=== PATIENT | female | born 1975 | race Caucasian/White ===

== ENCOUNTER 2016-05-05 13:46 | Emergency (ER) | payer SELFPAY ==
--- NOTE | 2016-05-05 14:06 | ER Document Report ---
ED Medical Screen (RME) - General Stated Complaint: SHORTNESS OF BREATH,BODY ACHES,FEVER Mode of Arrival: Ambulatory Information source: Patient Notes: She presents to the emergency department with shortness of breath. Patient describes symptoms for over a month. She reports last night she had a fever of 103. She reports she had chills. Denies cardiac history. Denies chest pain. I have greeted and performed a rapid initial assessment of this patient. A comprehensive ED assessment and evaluation of the patient, analysis of test results and completion of the medical decision making process will be conducted by additional ED providers. TRAVEL OUTSIDE OF THE [place] IN LAST 30 DAYS: No - Related Data Allergies/Adverse Reactions: morphine [Morphine] Adverse Reaction (Severe, Verified 05/02/15 09:12) VOMITING Past Medical History - Past Medical History Cardiac Medical History: Denies: Hx Coronary Artery Disease, Hx Heart Attack, Hx Hypertension Pulmonary Medical History: Denies: Hx Asthma, Hx Bronchitis, Hx COPD, Hx Pneumonia Neurological Medical History: Denies: Hx Cerebrovascular Accident, Hx Seizures Endocrine Medical History: Denies: Hx Diabetes Mellitus Type 1, Hx Diabetes Mellitus Type 2 Musculoskeltal Medical History: Denies Hx Arthritis Skin Medical History: Reports Hx MRSA Past Surgical History: Reports: Hx Cardiac Catheterization, Hx Orthopedic Surgery - Left Knee x 4, Hx Tubal Ligation - Immunizations Immunizations up to date: Yes Hx Diphtheria, Pertussis, Tetanus Vaccination: Yes - 2006 Physical Exam - Vital signs Vitals: Temp Pulse Resp BP Pulse Ox 97.6 F 87 20 129/86 H 100 05/05/16 13:56 05/05/16 13:56 05/05/16 13:56 05/05/16 13:56 05/05/16 13:56 Course - Vital Signs Vital signs: Temp Pulse Resp BP Pulse Ox 97.6 F 87 20 129/86 H 100 05/05/16 13:56 05/05/16 13:56 05/05/16 13:56 05/05/16 13:56 05/05/16 13:56
[2016-05-05 14:48] LABS: ABSOLUTE BASOPHILS # (AUTO) 0.1 10^3/uL (0.0-0.2); ABSOLUTE EOSINOPHILS # (AUTO) 0.3 10^3/uL (0.0-0.6); ABSOLUTE LYMPHOCYTES (AUTO) 1.6 10^3/uL (0.5-4.7); ABSOLUTE MONOCYTES (AUTO) 0.5 10^3/uL (0.1-1.4); ABSOLUTE NEUT (AUTO) 5.1 10^3/uL (1.7-8.2); EOSINOPHILS % (AUTO) 3.9 % (0-6); HEMATOCRIT 43.8 % (36.0-47.0); HEMOGLOBIN 14.2 g/dL (12.0-15.5); HGB HCT DIFFERENCE -1.2; LYMPHOCYTES % (AUTO) 21.2 % (13-45); MEAN CORPUSCULAR HEMOGLOBIN 30.7 pg (27.0-33.4); MEAN CORPUSCULAR HGB CONC 32.5 g/dL (32.0-36.0); MEAN CORPUSCULAR VOLUME 95 fl (80-97); MONOCYTES % (AUTO) 6.3 % (3-13); RED BLOOD COUNT 4.63 10^6/uL (3.72-5.28); SEGMENTED NEUTROPHILS % (AUTO) 67.6 % (42-78); WHITE BLOOD COUNT 7.5 10^3/uL (4.0-10.5)
[2016-05-05] MEDS ORDERED: IPRATROPIUM/ALBUTEROL 0.5-2.5 MG/3 ML AMPUL NEB ONE ×3 (15:15→17:22)
[2016-05-05 15:16] LABS: ALANINE AMINOTRANSFERASE 16 U/L (9-52); ALBUMIN 3.7 g/dL (3.5-5.0); ALKALINE PHOSPHATASE 59 U/L (38-126); ANION GAP 10 (5-19); ASPARTATE AMINO TRANSFERASE 20 U/L (14-36); BILIRUBIN,TOTAL 0.3 mg/dL (0.2-1.3); BLOOD UREA NITROGEN 7 mg/dL (7-20); CALCIUM 9.4 mg/dL (8.4-10.2); CARBON DIOXIDE 29 mmol/L (22-30); CHLORIDE 104 mmol/L (98-107); CREATININE RESULT 0.69 mg/dL (0.52-1.25); GLUCOSE 83 mg/dL (75-110); POTASSIUM 3.6 mmol/L (3.6-5.0); SODIUM 142.7 mmol/L (137-145); TOTAL PROTEIN 6.8 g/dL (6.3-8.2)
[2016-05-05] MEDS ORDERED: NORMAL SALINE 1000 ML 1,000 ML IV PRN ×2 (15:16→17:22)
[2016-05-05] MEDS ORDERED: METHYLPREDNISOLONE INJ 125 MG/2 ML SDV IV ONE (15:16)
--- NOTE | 2016-05-05 15:18 | ER Document Report ---
ED General - General Chief Complaint: Shortness Of Breath Stated Complaint: SHORTNESS OF BREATH,BODY ACHES,FEVER Time seen by provider: 15:17 Mode of Arrival: Ambulatory Information source: Patient Notes: This is a 40-year-old female with a history of one pack per day smoking presents to the emergency room with fever of 103, wheezing, shortness of breath , chest tightness and chills. Patient states his symptoms of been going on for the past 3 days. She has been lifting up floors and has been exposed to a lot of mold lately. TRAVEL OUTSIDE OF THE [place] IN LAST 30 DAYS: No - Related Data Allergies/Adverse Reactions: morphine [Morphine] Adverse Reaction (Severe, Verified 05/02/15 09:12) VOMITING Past Medical History - General Information source: Patient - Social History Smoking Status: Current Every Day Smoker Chew tobacco use (# tins/day): No Frequency of alcohol use: Occasional Drug Abuse: None Family History: CAD - mother and father, DM - mother and father, Hypertension, Other - Cancer on both mother and father's side Patient has suicidal ideation: No Patient has homicidal ideation: No - Past Medical History Cardiac Medical History: Denies: Hx Coronary Artery Disease, Hx Heart Attack, Hx Hypertension Pulmonary Medical History: Denies: Hx Asthma, Hx Bronchitis, Hx COPD, Hx Pneumonia Neurological Medical History: Denies: Hx Cerebrovascular Accident, Hx Seizures Endocrine Medical History: Denies: Hx Diabetes Mellitus Type 1, Hx Diabetes Mellitus Type 2 Renal/ Medical History: Denies: Hx Peritoneal Dialysis Musculoskeltal Medical History: Denies Hx Arthritis Skin Medical History: Reports Hx MRSA Past Surgical History: Reports: Hx Cardiac Catheterization, Hx Orthopedic Surgery - Left Knee x 4, Hx Tubal Ligation - Immunizations Immunizations up to date: Yes Hx Diphtheria, Pertussis, Tetanus Vaccination: Yes - 2006 Physical Exam - Vital signs Vitals: Temp Pulse Resp BP Pulse Ox 97.6 F 87 20 129/86 H 100 05/05/16 13:56 05/05/16 13:56 05/05/16 13:56 05/05/16 13:56 05/05/16 13:56 Notes: Physical exam: GENERAL: 40-year-old female, alert and oriented 3, no acute distress HEAD: Atraumatic, normocephalic. EYES: Pupils equal round and reactive to light, extraocular movements intact, sclera anicteric, conjunctiva are normal. ENT: TMs normal, nares patent, oropharynx clear without exudates. Moist mucous membranes. NECK: Normal range of motion, supple without lymphadenopathy or JVD. LUNGS: Bilateral wheezing HEART: Regular rate and rhythm without murmurs, rubs or gallops. ABDOMEN: Soft, nontender, normoactive bowel sounds. No guarding, no rebound. No masses appreciated. EXTREMITIES: Normal range of motion, no pitting or edema. No clubbing or cyanosis. NEUROLOGICAL: Cranial nerves II through XII grossly intact. Normal speech, normal gait. PSYCH: Normal mood, normal affect. SKIN: Warm, Dry, normal turgor, no rashes or lesions noted. Course - Re-evaluation Re-evalutation: 05/05/16 19:21 Note: Given bronchitis with bronchospasm in an active smoker, we will also cover with doxycycline. 05/05/16 19:23 Note: The patient looks much better. She looks comfortable. She is on her Smart phone and his not any type of respiratory distress at this time. - Vital Signs Vital signs: Temp Pulse Resp BP Pulse Ox 98.1 F 86 18 140/92 H 97 05/05/16 17:38 05/05/16 17:38 05/05/16 17:38 05/05/16 17:38 05/05/16 17:38 - Laboratory Result Diagrams: 05/05/16 14:13 05/05/16 14:13 - Diagnostic Test Radiology reviewed: Image reviewed, Reports reviewed - Chest x-ray shows no infiltrates or effusions Discharge - Discharge Clinical Impression: bronchitis with bronchospasm Condition: Stable Disposition: HOME, SELF-CARE Instructions: Bronchitis With Bronchospasm (Wheezing) (OM) Additional Instructions: Mediations: Rest, drink plenty of fluids, take steroids as prescribed. Use the hand-held or every 4-6 hours as needed. Use the pain medicines as needed. Take the doxycycline as prescribed. Follow-up with your primary care doctor Return to the emergency room for worsening shortness of breath or concerns he getting worse. Prescriptions: Doxycycline Hyclate 100 mg PO BID #20 capsule Prednisone [Deltasone 20 mg Tablet] 3 tab PO DAILY 5 Days Forms: Return to Work Referrals: NIECY ROPER COMPUTER REPAIR INSTRUCTOR [Primary Care Provider] - Follow up in 3-5 days
[2016-05-05] MEDS ORDERED: ALBUTEROL SULFATE HFA (90 MCG/PUFF) 8 GM MDI (1 MDI/ER DISP) IH PRN (19:20)
[2016-05-05] MEDS ORDERED: HYDROCODONE/ACETAMINOPHEN 5-325 MG 6 TAB/DSPK PO PRN (19:21)
[2016-05-05 19:50] VITALS: BP 138/68
== END 2016-05-05 19:48 | disposition home or self-care (01) ==
LOC: ER 13:46
DX: J40 Bronchitis, not specified as acute or chronic (principal); J98.01 Acute bronchospasm; R06.02 Shortness of breath; R52 Pain, unspecified; R50.9 Fever, unspecified; F17.210 Nicotine dependence, cigarettes, uncomplicated
CPT/HCPCS: 94640 ×2; 99285; 96361; 96374; 36415; 84703; 85025; 80053; 87804; 71020; 71275; J2930; J7030; J3490; J7620

== ENCOUNTER → 2016-06-30 | Outpatient (CLI) | payer MEDICAID | LOC: OD 11:25 | DX: Z79.899 Other long term (current) drug therapy (principal) | CPT/HCPCS: 36415; 84443 ==

== ENCOUNTER 2016-08-29 09:56 | Emergency (ER) | payer MEDICAID ==
[2016-08-29] MEDS ORDERED: CLINDAMYCIN 600 MG/D5W RTU 50 ML IV ONE (10:37)
[2016-08-29] MEDS ORDERED: DEXAMETHASONE SOD PHOS INJ 10 MG/1 ML VIAL IV ONE (10:37)
[2016-08-29] MEDS ORDERED: OXYCODONE-ACETAMINOPHEN 5-325 MG TABLET PO ONE (10:40)
[2016-08-29] MEDS ORDERED: KETOROLAC TROMETHAMINE INJ/PF 30 MG/1 ML SDV IV ONE (10:40)
--- NOTE | 2016-08-29 10:43 | ER Document Report ---
ED Oral Problem - General Chief Complaint: Toothache Stated Complaint: TOOTH PAIN Time Seen by Provider: 08/29/16 10:15 Mode of Arrival: Ambulatory Information source: Patient Notes: 40-year-old female presents to ED for abscess to the right lower gum. No teeth in this area of her gum. Patient states the pain as well as been there for 2 days. She states that her face started swelling this morning. TRAVEL OUTSIDE OF THE [place] IN LAST 30 DAYS: No - HPI Patient complains to provider of: Jaw pain, Swelling of face, Swelling of jaw Onset: Other - 2 days Onset: Gradual Quality of pain: Pressure, Sharp Severity: Severe Pain Level: 5 Swollen jaw/face: Moderate Associated symptoms: Jaw pain Worsened by: Cold Similar symptoms previously: Yes Recently seen / treated by doctor/dentist: No - Related Data Allergies/Adverse Reactions: morphine [Morphine] Adverse Reaction (Severe, Verified 05/02/15 09:12) VOMITING Past Medical History - General Information source: Patient - Social History Smoking Status: Current Every Day Smoker Cigarette use (# per day): Yes - half pack-a-day Chew tobacco use (# tins/day): No Frequency of alcohol use: Rare Drug Abuse: None Family History: CAD - mother and father, DM - mother and father, Hypertension, Other - Cancer on both mother and father's side Patient has suicidal ideation: No Patient has homicidal ideation: No - Past Medical History Cardiac Medical History: Reports: None Pulmonary Medical History: Reports: Hx Pneumonia EENT Medical History: Reports: None Neurological Medical History: Reports: None, Hx Migraine Endocrine Medical History: Reports: Hx Diabetes Mellitus Type 2 - Prediabetic Renal/ Medical History: Reports: None Malignancy Medical History: Reports: None GI Medical History: Reports: Hx Gastroesophageal Reflux Disease Musculoskeltal Medical History: Reports Hx Musculoskeletal Trauma Skin Medical History: Reports Hx MRSA Psychiatric Medical History: Reports: None Traumatic Medical History: Reports: Hx Fractures - Fractured ankles and wrist Infectious Medical History: Reports: None Past Surgical History: Reports: Hx Cardiac Catheterization, Hx Orthopedic Surgery - Left Knee x 4, Hx Tubal Ligation, Other - Pilonidal cyst - Immunizations Immunizations up to date: Yes Hx Diphtheria, Pertussis, Tetanus Vaccination: Yes - 2006 Review of Systems - Review of Systems Constitutional: No symptoms reported EENT: Mouth pain, Mouth swelling Cardiovascular: No symptoms reported Respiratory: No symptoms reported Gastrointestinal: No symptoms reported Genitourinary: No symptoms reported Female Genitourinary: No symptoms reported Musculoskeletal: No symptoms reported Skin: No symptoms reported Hematologic/Lymphatic: No symptoms reported Neurological/Psychological: No symptoms reported Physical Exam - Vital signs Vitals: Temp Pulse Resp BP Pulse Ox 97.7 F 77 19 149/111 H 99 08/29/16 09:57 08/29/16 09:57 08/29/16 09:57 08/29/16 09:57 08/29/16 09:57 Interpretation: Normal - General General appearance: Appears well, Alert - HEENT Head: Normocephalic, Atraumatic Eyes: Normal Pupils: PERRL Ears: Normal External canal: Normal Tympanic membrane: Normal Sinus: Normal Nasal: Normal Mouth/Lips: Other - Swelling to the right lower gum dental abscess noted. Dental abscess I&D with 18-gauge needle Pharynx: Normal Neck: Normal - Respiratory Respiratory status: No respiratory distress Chest status: Nontender Breath sounds: Normal Chest palpation: Normal - Cardiovascular Rhythm: Regular Heart sounds: Normal auscultation Murmur: No - Abdominal Inspection: Normal Distension: No distension Bowel sounds: Normal Tenderness: Nontender Organomegaly: No organomegaly - Back Back: Normal, Nontender - Extremities General upper extremity: Normal inspection, Nontender, Normal color, Normal ROM , Normal temperature General lower extremity: Normal inspection, Nontender, Normal color, Normal ROM , Normal temperature, Normal weight bearing. No: Grazyna's sign - Neurological Neuro grossly intact: Yes Cognition: Normal Orientation: AAOx4 [place] Coma Scale Eye Opening: Spontaneous [place] Coma Scale Verbal: Oriented [place] Coma Scale Motor: Obeys Commands [place] Coma Scale Total: 15 Speech: Normal Motor strength normal: LUE, RUE, LLE, RLE Sensory: Normal - Psychological Associated symptoms: Normal affect, Normal mood - Skin Skin Temperature: Warm Skin Moisture: Dry Skin Color: Normal Course - Vital Signs Vital signs: Temp Pulse Resp BP Pulse Ox 97.7 F 65 18 131/80 H 94 08/29/16 09:57 08/29/16 12:00 08/29/16 12:00 08/29/16 12:00 08/29/16 12:00 Procedures - Incision and Drainage Right Lower gums(dental) Time completed: 10:30 Type: Simple - Oral Anesthetic type: Other mL's of anesthetic: 0 I&D procedure: Other - Oral abscess Incision Method: Incision made with needle - 18-gauge Amount/type of drainage: moderate purulent Discharge - Discharge Clinical Impression: Dental abscess Condition: Stable Disposition: HOME, SELF-CARE Additional Instructions: Dental ABSCESS: You have dental abscess. This a pus-forming infection, usually due to staph. Some boils may be left to drain on their own, but most require lancing. From the time the tender lump first appears, it may be three or four days before the abscess is ready to dom. Local heat and rest help at this stage of treatment. An antibiotic may prevent spread of the infection. Depending on the size and location of an abscess, healing can take one to four weeks. Gargle with warm salt and soda solution 3-4 times a day Antibiotics may be prescribed, but are usually not necessary after an abscess has been drained. If you develop fever, chills, worsening pain, or increasing swelling in the area, call the doctor or return immediately. ORAL NARCOTIC MEDICATION: You have been given a prescription for pain control. This medication is a narcotic. It's best taken with food, as nausea can result if taken on an empty stomach. Don't operate machinery or drive within six hours of taking this medication. Do not combine this medicine with alcohol, or with any medication which can cause sedation (such as cold tablets or sleeping pills) unless you get permission from the physician. Narcotics tend to cause constipation. If possible, drink plenty of fluids and eat a diet high in fiber and fruits. Please be aware that prescription narcotics also have the potential for abuse. People become addicted to these medications because of the general sense of wellbeing that they induce. This feeling along with a significant reduction in tension, anxiety, and aggression provides a stimulating seductive quality to these drugs. Once your pain is under control, we encourage you to discard your unused narcotics. CLINDAMYCIN: You have been given a prescription for the antibiotic clindamycin. It is often prescribed for infections in the mouth, such as dental infections or abscesses, and for skin infections due to MRSA. It's important that you take all the medication, unless instructed otherwise by your physician. Failure to complete the entire course can result in relapse of your condition. Common side effects of antibiotics include nausea, intestinal cramping, or diarrhea. Women may develop vaginal yeast infections, and babies can get yeast (thrush) in the mouth following the use of antibiotics. Contact your physician if you develop significant side effects from this medication. Allergy to this antibiotic can result in hives, wheezing, faintness, or itching. If symptoms of allergy occur, stop the medication and call the doctor. Salt and soda solution 1 quart of water 1 tablespoon of salt 1 teaspoon of baking soda Mixed 3 ingredients together and boil for 1 minute Placed in a covered quart jar Use 1/2 ounce of cold solution to gargle 3 times a day FOLLOW-UP CARE: You have been referred for follow-up care to the dentists listed below. Call the dentists office for an appointment as you were instructed or within the next two days. If you experience worsening or a significant change in your symptoms, notify the physician immediately or return to the Emergency Department at any time for re-evaluation. [facility] [address] [place], [place] Tuesday mornings, by appointment [facility] [address] [place] [address] [facility] [address] [facility] [address] [facility] ([facility]) [facility] [address] [facility] [email or web address] [facility] [address] [place] [address] Tuesday- 8:00am to 5:00 pm Will see patients from other [facility]. Charges based on income and family size and accepts Medicare, Medicaid, and Insurances Will pull molars [facility] [address] Hours of Operation 8:00 am - 4:30 pm weekdays The following dental offices accept Medicaid: [facility] Dr. [address]aj[address] Dr. Rodríguez Dr. [place] Dr. Maldonado Zia Duarte, [place], and [facility] oral surgery Dr. Parker ([place]) Dr. Rojo ([place]) [facility] Drs. Sullivan ([place]) Dr. Vann ([place]) [facility] Dr. Mueller ([place]) Drs. Long and ([place]) Medicaid Care Line Prescriptions: Ibuprofen 600 mg PO Q6HP PRN #20 tablet PRN Reason: Oxycodone HCl/Acetaminophen [Percocet 5-325 mg Tablet] 1 tab PO Q6HP PRN #10 tab PRN Reason: Clindamycin HCl 300 mg PO Q6 #28 capsule Forms: Elevated Blood Pressure, Smoking Cessation Education
[2016-08-29 12:04] VITALS: BP 131/80
== END 2016-08-29 12:07 | disposition home or self-care (01) ==
LOC: ER 09:56
PROC: 0C96XZZ Drainage of Lower Gingiva, External Approach (ICD-10-PCS; principal; 2016-08-29)
DX: K04.7 Periapical abscess without sinus (principal); F17.210 Nicotine dependence, cigarettes, uncomplicated; Z86.14 Personal history of Methicillin resistant Staphylococcus aureus infection
CPT/HCPCS: 99282; 96375; 96365; 41800; J1885; J1100

== ENCOUNTER 2017-04-29 11:05 | Emergency (ER) | payer MEDICAID ==
[2017-04-29] MEDS ORDERED: CYCLOBENZAPRINE HCL 10 MG TABLET PO ONE (12:45)
[2017-04-29] MEDS ORDERED: KETOROLAC TROMETHAMINE 60 MG/2 ML SDV IM ONE (12:45)
--- NOTE | 2017-04-29 12:45 | ER Document Report ---
ED General - General Mode of Arrival: Ambulatory Information source: Patient TRAVEL OUTSIDE OF THE [place] IN LAST 30 DAYS: No - General Chief Complaint: Back Pain Stated Complaint: BACK PAIN Time Seen by Provider: 04/29/17 12:35 Notes: Patient is a 41 year old female presenting to emergency department complaining of upper back pain onset yesterday around 0400. Patient states she fell asleep on the couch and when she awoken to go to her bed she "felt something pop" as she stood up. Patient states her pain is exacerbated with neck movement and walking. Patient also states she can not lift her arms up above her head. Patient denies any numbness or tingling sensations. (DELORIS HURLEY) - Related Data Allergies/Adverse Reactions: morphine [Morphine] Adverse Reaction (Severe, Verified 04/29/17 11:05) VOMITING Past Medical History - General Information source: Patient - Social History Smoking Status: Current Every Day Smoker Cigarette use (# per day): Yes - > 4 mins Chew tobacco use (# tins/day): No Frequency of alcohol use: None Drug Abuse: None Family History: CAD - mother and father, DM - mother and father, Hypertension, Other - Cancer on both mother and father's side Patient has suicidal ideation: No Patient has homicidal ideation: No Pulmonary Medical History: Reports: Hx Pneumonia Neurological Medical History: Reports: Hx Migraine Endocrine Medical History: Reports: Hx Diabetes Mellitus Type 2 - Prediabetic GI Medical History: Reports: Hx Gastroesophageal Reflux Disease Musculoskeltal Medical History: Reports Hx Musculoskeletal Trauma Skin Medical History: Reports Hx MRSA Traumatic Medical History: Reports: Hx Fractures - Fractured ankles and wrist Past Surgical History: Reports: Hx Cardiac Catheterization, Hx Orthopedic Surgery - Left Knee x 8, Hx Tubal Ligation, Other - Pilonidal cyst - Immunizations Immunizations up to date: Yes Hx Diphtheria, Pertussis, Tetanus Vaccination: Yes - 2006 Review of Systems - Review of Systems Constitutional: No symptoms reported EENT: No symptoms reported Cardiovascular: No symptoms reported Respiratory: No symptoms reported Gastrointestinal: No symptoms reported Genitourinary: No symptoms reported Female Genitourinary: No symptoms reported Musculoskeletal: See HPI Skin: No symptoms reported Hematologic/Lymphatic: No symptoms reported Neurological/Psychological: No symptoms reported -: Yes All other systems reviewed and negative Physical Exam - Vital signs Vitals: Temp Pulse Resp BP Pulse Ox 98.0 F 80 16 132/99 H 100 04/29/17 11:23 04/29/17 11:23 04/29/17 11:23 04/29/17 11:23 04/29/17 11:23 - Notes Notes: GENERAL: Alert, interacts well. No acute distress. HEAD: Normocephalic, atraumatic. EYES: Pupils equal, round, and reactive to light. Extraocular movements intact. ENT: Oral mucosa moist, tongue midline. NECK: Full range of motion. Supple. Trachea midline. LUNGS: Clear to auscultation bilaterally, no wheezes, rales, or rhonchi. No respiratory distress. HEART: Regular rate and rhythm. No murmurs, gallops, or rubs. ABDOMEN: Soft, non-tender. Non-distended. Bowel sounds present in all 4 quadrants. EXTREMITIES: Moves all 4 extremities spontaneously. No edema, radial and dorsalis pedis pulses 2/4 bilaterally. No cyanosis. NEUROLOGICAL: Alert and oriented x3. Normal speech. Biceps and patellar DTRs 2+ bilaterally. PSYCH: Normal affect, normal mood. SKIN: Warm, dry, normal turgor. No rashes or lesions noted. BACK: Pain is reproducible on palpation and movement of the paraspinal musculature, no midline bony tenderness palpation, no step-offs or deformities, no trauma. (DELORIS HURLEY) Course - Re-evaluation Re-evalutation: 04/29/17 12:54 Reproducible on palpation and movement of the paraspinal musculature, no midline bony tenderness palpation, no step-offs or deformities, no trauma, no indication for x-ray. No signs of neurologic impingement. Patient will be placed on Flexeril and anti-inflammatories, discharged home. 04/29/17 16:26 Able to elevate her arms it simply causes pain. (PRABHJOT GARAY) - Vital Signs Vital signs: Temp Pulse Resp BP Pulse Ox 98.3 F 85 16 120/88 H 99 04/29/17 13:22 04/29/17 13:22 04/29/17 13:22 04/29/17 13:22 04/29/17 13:22 Discharge - Discharge Clinical Impression: Spasm of thoracic back muscle, Pre-hypertension, Tobacco abuse, Tobacco abuse counseling Condition: Stable Disposition: HOME, SELF-CARE Additional Instructions: Your back pain appears to be coming from a muscle spasm to the left of your thoracic spine. Please take the muscle relaxer and the anti-inflammatory ibuprofen 800 mg every 8 hours as needed for pain. If you develop numbness, tingling, weakness, increasing pain, fevers or any new or concerning symptoms please return to the emergency department immediately Prescriptions: Cyclobenzaprine HCl [Flexeril 10 mg Tablet] 10 mg PO TIDP PRN #15 tab PRN Reason: Ibuprofen [Motrin 800 mg Tablet] 800 mg PO Q8H PRN #30 tab PRN Reason: Forms: Elevated Blood Pressure, Smoking Cessation Education Referrals: DANA VAZQUEZ CRNP [Primary Care Provider] - Follow up in 1 week Rommelibsarthak Attestation: 04/29/17 16:26 I personally performed the services described in the documentation, reviewed and edited the documentation which was dictated to the scribe in my presence, and it accurately records my words and actions. (PRABHJOT GARAY) Scribe Documentation - Scribe Written by Oneal:: Oneal Egan, 04/29/2017 13:25 acting as scribe for :: Brian
[2017-04-29 13:26] VITALS: BP 120/88
== END 2017-04-29 13:26 | disposition home or self-care (01) ==
LOC: ER 11:05
DX: M62.830 Muscle spasm of back (principal); M54.6 Pain in thoracic spine; M54.9 Dorsalgia, unspecified; R03.0 Elevated blood-pressure reading, without diagnosis of hypertension; F17.210 Nicotine dependence, cigarettes, uncomplicated
CPT/HCPCS: 99406; 99283; 96372; J3490; J1885